=== PATIENT | male | born 1995 | race Caucasian/White ===

== ENCOUNTER → 2020-03-19 | Outpatient (CLI) | payer OTHER ==
--- NOTE | 2020-03-20 03:25 | REP ---
Clinical: Cough . Comparison: None . Technique: PA and lateral. Findings: The mediastinum and cardiac silhouette are normal. The lung adler are clear and without acute consolidation, effusion, or pneumothorax. The skeletal structures are intact and normal. Impression: 1. No acute cardiopulmonary process. Electronically Signed by Adriel Cardona MD 03/20/2020 03:16 A
== END ==
LOC: M RAD 11:56
PROVIDERS: ATTEND Internal Medicine Pulmonary Disease
DX: R05 Cough (principal)

== ENCOUNTER → 2020-04-10 | Outpatient (CLI) | payer OTHER ==
--- NOTE | 2020-04-10 09:13 | REP ---
Clinical: Abnormal lung findings. Technique: Axial noncontrast images from the thoracic inlet to the upper abdomen with coronal and sagittal re-formations. Comparison: None. Findings: The bilateral lung adler are well-aerated, relatively symmetric and essentially clear. No consolidation, significant nodule, or mass lesion. No pleural effusion. No pneumothorax. Tracheobronchial tree is patent. No obvious adenopathy. Mediastinum demonstrates normal thoracic aorta, pulmonary vasculature, and heart/pericardium. Surrounding musculoskeletal structures are intact. Impression: No obvious mediastinal or pleuroparenchymal process. Electronically Signed by Adriel Cardona MD 04/10/2020 09:05 A
== END ==
LOC: M RAD 06:56
PROVIDERS: ATTEND Internal Medicine Pulmonary Disease
DX: R91.8 Other nonspecific abnormal finding of lung field (principal)

== ENCOUNTER 2021-05-06 16:22 | Emergency (ER) | payer OTHER ==
[~2021-05-06] VITALS: Ht 167.6 cm; Wt 82.0 kg
[2021-05-06 16:23] VITALS: BP 129/73
[2021-05-06] MEDS ORDERED: MONT10TA10 PO (16:55)
[2021-05-06] MEDS ORDERED: ALBU8.5H PO (16:55)
== END 2021-05-06 18:27 | disposition left against medical advice (07) ==
LOC: M ED 16:22
DX: R05 Cough (principal)